=== PATIENT | female | born 1945 | race Caucasian/White ===

== ENCOUNTER 2017-12-16 21:32 | Emergency (ER) | payer MEDICARE, OTHER ==
[~2017-12-16] VITALS: Ht 157.5 cm; Wt 72.6 kg
[~2017-12-16 21:32] MED LIST: CIPRO500 MG PO; CITALOPRAM HBR40 MG PO; FLAGYL500 MG PO; MELOXICAM15 MG PO; NORCO 5-325 TA1 EACH PO
--- NOTE | 2017-12-18 15:52 | EKG ---
[facility] [address] [facility] [place] [address] Signed Normal sinus rhythm Possible Left atrial enlargement Borderline ECG No previous ECGs available Confirmed by AUTUMN PHILLIPS MD (255) on 12/18/2017 3:52:34 PM Electronically Signed By: AUTUMN PHILLIPS MD 12/18/17 1552 PATIENT NAME: KAEL PIMENTEL Electrocardiogram DATE OF : 43 PHYSICIAN: AUTUMN PHILLIPS MD REPORT #: [id number] REPORT IS CONFIDENTIAL AND NOT TO BE RELEASED WITHOUT AUTHORIZATION
== END 2017-12-17 01:24 | disposition home or self-care (01) ==
LOC: ED 21:32
DX: R07.9 Chest pain, unspecified (principal); F17.200 Nicotine dependence, unspecified, uncomplicated; Z90.49 Acquired absence of other specified parts of digestive tract; Z90.89 Acquired absence of other organs; Z79.899 Other long term (current) drug therapy
CPT/HCPCS: 71045; 80053; 84484; 85025; 93005; 93010; 96374; 96375; 99284; J2270; J2405

== ENCOUNTER 2018-01-06 20:00 | Emergency (ER) | payer MEDICARE, OTHER ==
[~2018-01-06] VITALS: Ht 157.5 cm; Wt 72.6 kg
--- NOTE | 2018-01-07 08:03 | EKG ---
[facility] [address] [facility] [place] [address] Signed Normal sinus rhythm with sinus arrhythmia ST elevation, consider inferior injury or acute infarct ACUTE [place] / STEMI Consider right ventricular involvement in acute inferior infarct Abnormal ECG When compared with ECG of 16-DEC-2017 21:37, ST elevation now present in Inferior leads Confirmed by AUTUMN PHILLIPS MD (255) on 01/07/2018 8:03:13 AM Electronically Signed By: AUTUMN PHILLIPS MD 01/07/18 0803 PATIENT NAME: KAEL PIMENTEL Electrocardiogram DATE OF : 43 PHYSICIAN: AUTUMN PHILLIPS MD REPORT #: [id number] REPORT IS CONFIDENTIAL AND NOT TO BE RELEASED WITHOUT AUTHORIZATION
== END 2018-01-06 21:00 | disposition short-term general hospital (02) ==
LOC: ED 20:00
DX: I21.3 ST elevation (STEMI) myocardial infarction of unspecified site (principal); F17.200 Nicotine dependence, unspecified, uncomplicated; Z79.899 Other long term (current) drug therapy
CPT/HCPCS: 71045; 80053; 84484; 85025; 93005; 93010; 96374; 96375; 99285; J1644; J2270; J2405

== ENCOUNTER 2018-08-12 15:35 | Emergency (ER) | payer MEDICARE, OTHER ==
[~2018-08-12] VITALS: Ht 157.5 cm; Wt 77.6 kg
--- NOTE | ~2018-08-12 | EKG ---
[facility] [address] [place], [place] [address] Draft EK completed, results pending confirmation PATIENT NAME: KAEL PIMENTEL Electrocardiogram DATE OF : 43 PHYSICIAN: PRELIMINARY REPORT #: [id number] REPORT IS CONFIDENTIAL AND NOT TO BE RELEASED WITHOUT AUTHORIZATION
--- OUTSIDE RECORDS SUMMARY | ~2018-08-12 | XMS | Clinical Summary ---
Demographics + + + | Address | [address] | | | [place] [address] | + + + | Home Phone | | + + + | Preferred Language | Unknown | + + + | Marital Status | Single | + + + | Nondenominational Affiliation | Unknown | + + + | Race | Unknown | + + + | Ethnic Group | Unknown | + + + Author + + + | Author | [facility] | | | and [place] | + + + | Organization | [facility] | | | and [place] | + + + | Address | Unknown | + + + | Phone | Unavailable | + + + Support + + +---------+ + | Name | Relationship | Address | Phone | + + +---------+ + | Norm Tatum | ECON | Unknown | | + + +---------+ + | Ana Montes | ECON | Unknown | | + + +---------+ + | BRITNEY BOND | ECON | Unknown | | + + +---------+ + Care Team Providers + +------+ + | Care Psychometrician Name | Role | Phone | + +------+ + | Lobo Guillaume MD | PP | | + +------+ + Allergies No Known Allergies Current Medications + + +-------+---------+------+------+-------+ | Prescription | Sig. | Disp. | Refills | Star | End | Statu | | | | | | t | Date | s | | | | | | Date | | | + + +-------+---------+------+------+-------+ | citalopram | Take 40 mg by mouth | | | 09/1 | | Activ | | (CELEXA) 40 mg | Daily. | | | 4/20 | | e | | tablet | | | | 12 | | | + + +-------+---------+------+------+-------+ | pravastatin | 2 tablets by mouth | | | 09/1 | | Activ | | (PRAVACHOL) 40 MG | at bedtime | | | 4/20 | | e | | tablet | | | | 12 | | | + + +-------+---------+------+------+-------+ | gemfibrozil | 2 tablets by mouth | | | 09/1 | | Activ | | (LOPID) 600 mg | daily | | | 4/20 | | e | | tablet | | | | 12 | | | + + +-------+---------+------+------+-------+ | aspirin (ASPIRIN | Take 81 mg by mouth | | | 07/25 | | Activ | | LOW DOSE) 81 MG | Daily. | | | 420 | | e | | tablet | | | | 12 | | | + + +-------+---------+------+------+-------+ | Vernon-3 Fatty | CPDR; 1 capsule by | | | 07/25 | | Activ | | Acids (OMEGA 3 PO) | mouth daily | | | 4/20 | | e | | | | | | 12 | | | + + +-------+---------+------+------+-------+ | ibuprofen (ADVIL, | Take 200 mg by mouth | | | 1 | | Activ | | MOTRIN) 200 mg | as needed. | | | 4/20 | | e | | tablet | | | | 12 | | | + + +-------+---------+------+------+-------+ | Fluticasone | 1 inhalation twice a | | | 08/0 | | Activ | | Propionate, Inhal, | day | | | /20 | | e | | (FLOVENT DISKUS) 100 | | | | 11 | | | | MCG/BLIST AEPB | | | | | | | + + +-------+---------+------+------+-------+ | atorvaSTATin | Take 80 mg by mouth | | | | | Activ | | (LIPITOR) 80 MG | nightly. | | | | | e | | tablet | | | | | | | + + +-------+---------+------+------+-------+ | clopidogrel | Take 75 mg by mouth | | | | | Activ | | (PLAVIX) 75 mg | Daily. | | | | | e | | tablet | | | | | | | + + +-------+---------+------+------+-------+ | loperamide (EQ | Take 2 mg by mouth | | | | | Activ | | ANTI-DIARRHEAL) 2 mg | Every other day. | | | | | e | | capsule | | | | | | | + + +-------+---------+------+------+-------+ | losartan (COZAAR) | Take 25 mg by mouth | | | | | Activ | | 25 mg tablet | Daily. | | | | | e | + + +-------+---------+------+------+-------+ | meloxicam (MOBIC) | Take 15 mg by mouth | | | | | Activ | | 15 mg tablet | Daily. | | | | | e | + + +-------+---------+------+------+-------+ | nitroglycerin | Place 0.4 mg under | | | | | Activ | | (NITROSTAT) 0.4 mg | the tongue every 5 | | | | | e | | SL tablet | minutes as needed | | | | | | | | for Chest pain. | | | | | | + + +-------+---------+------+------+-------+ | omeprazole | Take 20 mg by mouth | | | | | Activ | | (PRILOSEC) 20 mg | every morning | | | | | e | | capsule | (before breakfast). | | | | | | + + +-------+---------+------+------+-------+ | metoprolol | Take 25 mg by mouth | | | | | Activ | | tartrate (LOPRESSOR) | 2 times daily. | | | | | e | | 25 mg tablet | | | | | | | + + +-------+---------+------+------+-------+ Active Problems + + + | Problem | Noted Date | + + + | [place] (myocardial infarction) ([facility]) | 07/14/2018 | + + + | Claudication ([facility]) | 07/14/2018 | + + + | Hypertension | 07/14/2018 | + + + | Hyperlipemia | 07/14/2018 | + + + | Degenerative joint disease | 07/14/2018 | + + + | Chest discomfort | 07/14/2018 | + + + | GERD (gastroesophageal reflux disease) | 07/14/2018 | + + + | ANXIETY | | + + + | COPD | | + + + | DYSLIPIDEMIA | | + + + | OVERWEIGHT | | + + + + + | Overview: ICD-10 Record update | + + + +---+ | HEMOPTYSIS UNSPECIFIED | | + +---+ + + | Overview: ICD-10 Record update | + + + +---+ | ALZHEIMER'S DISEASE, FAMILY HX | | + +---+ | CORONARY ARTERY DISEASE, FAMILY HX | | + +---+ | DEPRESSION, MAJOR, RECURRENT | | + +---+ | Sleep disturbance | | + +---+ + + | Overview: PLACIDO [id number] Decision | + + + +---+ | TOBACCO ABUSE | | + +---+ | VITAMIN D DEFICIENCY | | + +---+ | POLYCYTHEMIA, SECONDARY | | + +---+ | OTHER HEMOPTYSIS | | + +---+ | Pulmonary emphysema (HCC) | | + +---+ + + | Overview: PLACIDO [id number] Decision | + + Encounters +--------+ + + + + | Date | Type | Specialty | Care Team | Description | +--------+ + + + + | 07/20/ | Ancillary | | Provider, | | | 2018 | Orders | | MD Sharri | | +--------+ + + + + | 07/17/ | Abstract | | Aris Galicia | | | 2017 | | | MD Pal FACS | | +--------+ + + + + | 07/15/ | Imaging | | Dianna, | | | 2017 | Exam | | MD Sharri | | +--------+ + + + + | 07/14/ | Abstract | | Aris Galicia | | | 2017 | | | MD Pal FACS | | +--------+ + + + + | 07/14/ | Abstract | | Aris Galicia | Claudication ([facility]); | | 2017 | | | MD Pal FACS | Chest discomfort | +--------+ + + + + | 07/10/ | Telephone | | Aris Galicia | Other (Requesting | | 2017 | | | MD Pal FACS | imaging) | +--------+ + + + + from Last 3 Months Social History + +-------+ +--------+------+ | Tobacco Use | Types | Packs/Day | Years | Date | | | | | Used | | + +-------+ +--------+------+ | Current Every Day | | 0.5 | | | | Smoker | | | | | + +-------+ +--------+------+ + + | Comments: x 58 years (2018) | + + + + +---------+ + | Alcohol Use | Drinks/We | oz/Week | Comments | | | ek | | | + + +---------+ + | No | | | | + + +---------+ + + + + | Sex Assigned at | Date Recorded | | | | + + + | Not on file | | + + + Last Filed Vital Signs + + + + | Vital Sign | Reading | Time Taken | + + + + | Blood Pressure | 136/80 | 06/24/2011 0000 PDT | + + + + | Pulse | - | - | + + + + | Temperature | - | - | + + + + | Respiratory Rate | - | - | + + + + | Oxygen Saturation | - | - | + + + + | Inhaled Oxygen | - | - | | Concentration | | | + + + + | Weight | 77.1 kg (170 lb) | 06/24/2011 0000 PDT | + + + + | Height | 158.8 cm (5' 2.5") | 06/24/2011 0000 PDT | + + + + | Body Mass Index | 30.6 | 06/24/2011 0000 PDT | + + + + Plan of Treatment +--------+---------+ + + + | Date | Type | Specialty | Care Team | Description | +--------+---------+ + + + | 08/17/ | Office | | Aris Galicia | | | 2018 | Visit | | MD Kae, [address] | | | | | | [address] | | | | | | [place] [address] | | | | | | [phone] | | | | | | | | +--------+---------+ + + + | 08/27/ | Office | | Shar Pettit | | | 2017 | Visit | | MD Joshua [address] | | | | | [address] | | | | | | [place] [address] | | | | | | [phone] | | | | | | | | +--------+---------+ + + + + + + + + | Health Maintenance | Due Date | Last Done | Comments | + + + + + | Vaccine: | | | | | Dtap/Tdap/Td (1 - | 3 | | | | Tdap) | | | | + + + + + | BREAST CANCER | | | | | SCREENING (MAMM Q2 | 4 | | | | YEARS 50-74) | | | | + + + + + | Colorectal Cancer | | | | | Screening | 4 | | | | (Colonoscopy) | | | | + + + + + | Vaccine: Zoster (1 | | | | | of 2) | 4 | | | + + + + + | Vaccine: | | | | | Pneumococcal 65+ | 9 | | | | Low/Medium Risk (1 | | | | | of 2 - PCV13) | | | | + + + + + | Vaccine: Influenza | | | | | (#1) | 8 | | | + + + + + Procedures + +--------+ + + + | Procedure Name | Priori | Date/Time | Associated Diagnosis | Comments | | | ty | | | | + +--------+ + + + | CT ANGIOGRAM ABDOMEN | Routin | 07/15/2018 | | Results for this | | AORTA BILAT FEMORAL | e | 1235 PDT | | procedure are in the | | RUNOFF W CONTRAST | | | | results section. | + +--------+ + + + from Last [address] Angio Abd Aorta Bilat Fem Run W Cont (07/15/2018 1235) + + + | Narrative | Performed At | + + + | External films for comparison only | [facility] | | | | | No results will be in the chart. | | + + + + +---------+ + + | Performing | Address | City/State/Zipcode | Phone Number | | Organization | | | | + +---------+ + + | [facility] | | | | + +---------+ + + from Last 3 Months Insurance + +--------+ +--------+ +---------+ | Payer | Benefi | Subscriber | Type | Phone | Address | | | t Plan | ID | | | | | | / | | | | | | | Group | | | | | + +--------+ +--------+ +---------+ | MEDICARE | MEDICA | [id number] | Medica | [phone]- | | | | RE | | re | [phone] | | | | PART A | | | | | | | AND B | | | | | + +--------+ +--------+ +---------+ | [place]ID [place] | MEDICA | [id number] | Medica | [phone] | | | | ID | | id | [phone] | | | | [place] | | | | | + +--------+ +--------+ +---------+ + +--------+ +--------+ + + | Guarantor Name | Accoun | Relation to | Date | Phone | Billing Address | | | t Type | Patient | of | | | | | | | | | | + +--------+ +--------+ + + | SHYANNE AMES | Person | Self [birth year] | Home: | [address] | | | al/Fam | | 1945 | [phone] | | | [place] | | | [phone] | [place] [address] | + +--------+ +--------+ + +
--- OUTSIDE RECORDS SUMMARY | ~2018-08-12 | XMS | Encounter Summary ---
Demographics + + + | Address | [address] | | | [place] [address] | + + + | Home Phone | | + + + | Preferred Language | Unknown | + + + | Marital Status | Single | + + + | Nondenominational Affiliation | Unknown | + + + | Race | Unknown | + + + | Ethnic Group | Unknown | + + + Author + + + | Author | [facility] | | | and [place] | + + + | Organization | [facility] | | | and [...] Team Providers + +------+ + | Care Geography Faculty Member Name | Role | Phone | + +------+ + | Lobo Guillaume MD | PCP | | + +------+ + Encounter Details +--------+ + + + + | Date | Type | Department | Care Team | Description | +--------+ + + + + | 07/14/ | Abstract | [facility] | Aris Galicia | Claudication (HCC); | | 2017 | | SURGERY [address] | MD Kae, [address] | Chest discomfort | | | | [place], [place] | [address] [facility] | | | | | [address] | [place] [address] | | | | | [phone] | [phone] | | | | | | | | +--------+ + + + + Social History + +-------+ +--------+------+ | Tobacco [...] on file | | + + + as of this encounter Plan of Treatment +--------+---------+ + + + | Date | Type | Specialty | Care Team | Description | +--------+---------+ + + + | 08/17/ | Office | General Surgery | Aris Galicia | | | 2017 | Visit | | MD Pal FACS [address] | | | | | | [address] | | | | | | [place] [address] | | | | | | [phone] | | | | | | | | +--------+---------+ + + + | 08/27/ | Office | Cardiology | Shar Pettit | | | 2017 | Visit | | MD Joshua [address] | | | | | | [address] [facility] | | | | | | [place] [address] | | | | | | [phone] | | | | | | | | +--------+---------+ + + + as of this encounter Visit Diagnoses + + | Diagnosis | + + | Claudication (HCC) | + + | Peripheral vascular disease, unspecified | + + | Chest discomfort | + + | Other chest pain | + +"
--- OUTSIDE RECORDS SUMMARY | ~2018-08-12 | XMS | Clinical Summary ---
Demographics + + + | Address | [address] | | | [place] [address] | + + + | Home Phone | | + + + | Preferred Language | Unknown | + + + | Marital Status | Single | + + + | Sikhism Affiliation | Unknown | + + + | Race | Unknown | + + + | Ethnic Group | Unknown | + + + Author + + + | Author | [facility] | | | and [place] | + + + | Organization | [facility] | | | and [...] Team Providers + +------+ + | Care Investment Banker Name | Role | Phone | + [...] | | | + + +-------+---------+------+------+-------+ | [place]-3 Fatty | CPDR; 1 capsule by | [...] Noted Date | + + + | [place] (myocardial infarction) ([facility]) | 07/14/2018 | + + + | Claudication ([facility]) | 07/14/2018 | + + + | [...] + +---+ + + | Overview: PLACIDO [id number] Decision | + + + +---+ | TOBACCO ABUSE | | + +---+ | VITAMIN D DEFICIENCY | | + +---+ | POLYCYTHEMIA, SECONDARY | | + +---+ | OTHER HEMOPTYSIS | | + +---+ | Pulmonary emphysema (HCC) | | + +---+ + + | Overview: PLACIDO [id number] Decision | + + Encounters +--------+ + [...] Abstract | | Aris Galicia | Claudication ([facility]); | | 2017 | | | MD [...] | | | | | [place] [address] | | | | | | [phone] | | | | | | | | +--------+---------+ + + + | 08/27/ | Office | | Shar Pettit | | | 2017 | Visit | | MD Joshua [address] | | | | | | [address] | | | | | | [place] [address] | | | | | | [phone] | | | | | | | [...] +--------+ +---------+ | MEDICARE | MEDICA | [id number] | Medica | [phone]- | | | | RE | | re | [phone] | | | | PART A | | | | | | | AND B | | | | | + +--------+ +--------+ +---------+ | MEDICAID [place] | MEDICA | [id number] | Medica | [phone] | | | | ID | | [...] | | | [address] | [place] [address] | + +--------+ +--------+ + +
--- OUTSIDE RECORDS SUMMARY | ~2018-08-12 | XMS | Clinical Summary ---
Demographics + + + | Address | [address] | | | [place] [address] | + + + | Home Phone | | + + + | Preferred Language | Unknown | + + + | Marital Status | | + + + | Jew Affiliation | Unknown | + + + | Race | Unknown | + + + | Ethnic Group | Unknown | + + + Author + + + | Author | [facility] | + + + | Organization | [facility] | + + + | Address | Unknown | + + + | Phone | Unavailable | + + + Support + + +---------+ + | Name | Relationship | Address | Phone | + + +---------+ + | Ana Montes | ECON | Unknown | | + + +---------+ + Care Team Providers + +------+ + | Care Open Die Inspector Name | Role | Phone | + +------+ + PP | Unavailable | + +------+ + Allergies No Known Allergies Current Medications + + +--------+---------+------+------+-------+ | Prescription | Sig. | Disp. | Refills | Star | End | Statu | | | | | | t | Date | s | | | | | | Date | | | + + +--------+---------+------+------+-------+ | aspirin 81 MG EC | Take 1 tablet by | 30 | 11 | 12/25 | 12/25 | Activ | | tablet | mouth daily with | tablet | | 05/13 | 05/13 | e | | | breakfast. | | | 18 | 19 | | + + +--------+---------+------+------+-------+ | atorvastatin | Take 1 tablet by | 90 | 3 | 12/25 | 12/25 | Activ | | (LIPITOR) 80 MG | mouth daily. | tablet | | 6/20 | 6/20 | e | | tablet | | | | 18 | 19 | | + + +--------+---------+------+------+-------+ | clopidogrel | Take 1 tablet by | 90 | 3 | 12/25 | 12/25 | Activ | | (PLAVIX) 75 MG | mouth daily. | tablet | | 6/20 | 05/13 | e | | tablet | | | | 18 | 19 | | + + +--------+---------+------+------+-------+ | losartan (COZAAR) | Take 1 tablet by | 90 | 3 | 12/25 | 12/25 | Activ | | 25 MG tablet | mouth daily. | tablet | | 6 | 05/13 | e | | | | | | 18 | 19 | | + + +--------+---------+------+------+-------+ | metoprolol | Take 1 tablet by | 180 | 3 | 02 | 12/25 | Activ | | (LOPRESSOR) 25 MG | mouth 2 (two) times | tablet | | 04/12 | 04/12 | e | | tablet | daily. | | | 18 | 19 | | + + +--------+---------+------+------+-------+ | nitroGLYCERIN | Place 1 tablet under | 25 | 1 | 12/25 | 12/25 | Activ | | (NITROSTAT) 0.4 MG | the tongue every 5 | tablet | | / | / | e | | SL tablet | (five) minutes as | | | 18 | 19 | | | | needed for Chest | | | | | | | | pain. | | | | | | + + +--------+---------+------+------+-------+ Active Problems + + + | Problem | Noted Date | + + + | Precordial pain | 01/06/2018 | + + + | Acute PA, inferior wall (HCC) | 01/06/2018 | + + + | Dyslipidemia | 01/06/2018 | + + + | Osteoarthritis of knee | 01/06/2018 | + + + | Essential hypertension | 01/06/2018 | + + + | Tobacco dependence | 01/06/2018 | + + + Social History + +-------+ +--------+------+ | Tobacco Use | Types | Packs/Day | Years | Date | | | | | Used | | + +-------+ +--------+------+ | Current Every Day | | 1 | 52 | | | Smoker | | | | | + +-------+ +--------+------+ + +---+---+---+ | Smokeless Tobacco: | | | | | Never Used | | | | + +---+---+---+ + + | Tobacco Cessation: Ready to Quit: No; Counseling Given: Yes | + + + + + | Sex Assigned at | Date Recorded | | | | + + + | Not on file | | + + + Last Filed Vital Signs + + + + | Vital Sign | Reading | Time Taken | + + + + | Blood Pressure | 136/64 | 01/08/2018 11:18 AM PST | + + + + | Pulse | 55 | 01/08/2018 11:18 AM PST | + + + + | Temperature | 36.9 C (98.5 F) | 01/08/2018 11:18 AM PST | + + + + | Respiratory Rate | 20 | 01/08/2018 11:18 AM PST | + + + + | Oxygen Saturation | 95% | 01/08/2018 11:18 AM PST | + + + + | Inhaled Oxygen | - | - | | Concentration | | | + + + + | Weight | 79.4 kg (175 lb) | 01/08/2018 3:15 AM PST | + + + + | Height | 160 cm (5' 3") | 01/06/2018 11:23 PM PST | + + + + | Body Mass Index | 31 | 01/08/2018 3:15 AM PST | + + + + Plan of Treatment Not on file Implants + +-------+--------+ +--------+--------+--------+ | Implanted | Type | Area | Manufacture | Device | Expira | Model | | | | | r | | tion | / | | | | | | Identi | Date | Serial | | | | | | fier | | / Lot | + +-------+--------+ +--------+--------+--------+ | Synergy Jacinto 2.5 X | Stent | Hood | [place] | | 10/27/ | [id number] | | 16-01/06/2018Implanted: Qty: 1 | | ry | SCIENTIFIC | | 2017 | [id number] | | on 01/06/2018 by Kareen, | | | | | | 50 / | | MD Josh | | | | | | /[id number] | | | | | | | | 554 | + +-------+--------+ +--------+--------+--------+ | Synergy Jacinto 3.5 X | Stent | Hood | [place] | | 10/27/ | [id number] | | 20-01/06/2018Implanted: Qty: 1 | | ry | SCIENTIFIC | | 2017 | [id number] | | on 01/06/2018 by Kareen, | | | | | | 50 / | | MD Josh | | | | | | / | | | | | | | | 196 | + +-------+--------+ +--------+--------+--------+ | Synergy Jacinto 2.75 X | Stent | Hood | [place] | | 10/13/ | [id number] | | 32-01/06/2018Implanted: Qty: 1 | | ry | SCIENTIFIC | | 2017 | [id number] | | on 01/06/2018 by Kareen, | | | | | | 70 / | | MD Josh | | | | | | / | | | | | | | | 584 | + +-------+--------+ +--------+--------+--------+ Results Not on filefrom Last 3 Months Insurance + +--------+ +------+-------+ + | Payer | Benefi | Subscriber | Type | Phone | Address | | | t Plan | ID | | | | | | / | | | | | | | Group | | | | | + +--------+ +------+-------+ + | MEDICARE | MEDICA | [id number] | | | [address] | | | RE | | | | [place] [phone] | | | IP-OP | | | | | + +--------+ +------+-------+ + | MEDICAID | MEDICA | [id number] | | | [address] | | | ID | | | | [place], [place] | | | [place] | | | | [phone] | + +--------+ +------+-------+ + | MEDICAID | MEDICA | [id number] | | | [address] | | | ID | | | | [place], [place] | | | [place] | | | | [phone] | + +--------+ +------+-------+ + + +--------+ +--------+ + + | Guarantor Name | Accoun | Relation to | Date | Phone | Billing Address | | | t Type | Patient | of | | | | | | | | | | + +--------+ +--------+ + + | SHYANNE AMES | Person | Self [birth year] | Home: | [address] | | | al/Fam | | 1945 | [phone] | | | [place] | | | [address] | [place] | | | | | | | [phone] | + +--------+ +--------+ + +
--- OUTSIDE RECORDS SUMMARY | ~2018-08-12 | XMS | Encounter Summary ---
Demographics + + + | Address | [address] | | | [place] [address] | + + + | Home Phone | | + + + | Preferred Language | Unknown | + + + | Marital Status | Single | + + + | Christian Affiliation | Unknown | + + + | Race | Unknown | + + + | Ethnic Group | Unknown | + + + Author + + + | Author | [facility] | | | and [place] | + + + | Organization | [facility] | | | [...] Team Providers + +------+ + | Care Digital Production Manager Name | Role | Phone | + +------+ + | Lobo Guillaume MD | PCP | | + +------+ + Encounter Details +--------+ + + + + | Date | Type | Department | Care Team | Description | +--------+ + + + + | 07/20/ | Ancillary | [facility] | Provider, | | | 2018 | Orders | [facility] | MD Sharri [address] | | | | | IMAGING | [address] | | | | | [phone] | [place] [address] | | +--------+ + + + + [...] | | | | | | [address] [place] | | | | | | [place] [address] | | | | | | [phone] | | | | | | | | +--------+---------+ + + + | 08/27/ | Office | Cardiology | Shar Pettit | | | 2017 | Visit | | MD Joshua [address] | | | | | | [address] [place] | | | | | | [place] [address] | | | | | | [phone] | | | | | | | | +--------+---------+ + + + as of this encounter Results CT Angio Abd Aorta Bilat Fem [...] | | | + +---------+ + + CT Angio Abd Aorta Bilat Fem Run W Cont (06/07/2016 0855) + + + | Narrative | Performed [...] | | | + +---------+ + + in this encounter Visit Diagnoses Not on filein this encounter"
--- OUTSIDE RECORDS SUMMARY | ~2018-08-12 | XMS | Encounter Summary ---
Demographics + + + | Address | [address] | | | [place] [address] | + + + | Home Phone | | + + + | Preferred Language | Unknown | + + + | Marital Status | Single | + + + | Nondenominational Affiliation | Unknown | + + + | Race | Unknown | + + + | Ethnic Group | Unknown | + + + Author + + + | Author | [facility] | | | and [place] | + + + | Organization | [facility] | | [...] Team Providers + +------+ + | Care Stone Banker Name | Role | Phone | + +------+ + | Lobo Guillaume MD | PCP | | + +------+ + Encounter Details +--------+ + + + + | Date | Type | Department | Care Team | Description | +--------+ + + + + | 07/15/ | Imaging | [facility] | Provider, | | | 2018 | Exam | [facility] | MD Sharri [address] | | | | | IMAGING | Anthony Yi | | | | | [phone] | [place] [address] | | +--------+ + + + + [...] | | | | | [address] [place] | | | | | | [place] [address] | | | | | | [phone] | | | | | | | | +--------+---------+ + + + | 08/27/ | Office | Cardiology | Shar Pettit | | | 2017 | Visit | | MD Joshua [address] | | | | | | [address] [place] | | | | | | [place] [address] | | | | | | [phone] | | | | | | | | +--------+---------+ + + + as of this encounter Procedures + +--------+ + + + | [...] section. | + +--------+ + + + in this encounter Results CT Angio Abd Aorta [...]
--- OUTSIDE RECORDS SUMMARY | ~2018-08-12 | XMS | Encounter Summary ---
Demographics + + + | Address | [address] | | | [place] [address] | + + + | Home Phone | | + + + | Preferred Language | Unknown | + + + | Marital Status | Single | + + + | Scientology Affiliation | Unknown | + + + | Race | Unknown | + + + | Ethnic Group | Unknown | + + + Author + + + | Author | [facility] | | | and [place] | + + + | Organization | [facility] | | | [...] Team Providers + +------+ + | Care Steamfitter Supervisor Name | Role | Phone | + +------+ + | Lobo Guillaume MD | PCP | | + +------+ + Encounter Details +--------+ + + + + | Date | Type | Department | Care Team | Description | +--------+ + + + + | 07/14/ | Abstract | [facility] | Aris Galicia | | | 2018 | | SURGERY [address] | MD Kae, FACS [address] | | | | | [address] [place], [place] | [address] [facility] | | | | | [address] | [place] [address] | | | | | [phone] | [phone] | | | | | | | [...] [place] | | | | | | [place] [address] | | | | | | [phone] | | | | | | | | +--------+---------+ + + + | 08/27/ | Office | Cardiology | Shar Pettit | | | 2017 | Visit | | MD Joshua [address] | | | | | | [address] [place] | | | | | | [place] [address] | | | | | | [phone] | | | | | | | | +--------+---------+ + + + as of this encounter Procedures + +--------+ + + + | Procedure Name | Priori | Date/Time | Associated Diagnosis | Comments | | | ty | | | | + +--------+ + + + | EXTERNAL LAB: BUN | Routin | 01/03/2018 | | Results for this | | | e | 0000 PST | | procedure are in the | | | | | | results section. | + +--------+ + + + | EXTERNAL LAB: | Routin | 01/03/2018 | | Results for this | | TROPONIN T | e | 0000 PST | | procedure are in the | | | | | | results section. | + +--------+ + + + | EXTERNAL LAB: ALT | Routin | 01/03/2018 | | Results for this | | | e | 0000 PST | | procedure are in the | | | | | | results section. | + +--------+ + + + | EXTERNAL LAB: AST | Routin | 01/03/2018 | | Results for this | | | e | 0000 PST | | procedure are in the | | | | | | results section. | + +--------+ + + + | EXTERNAL LAB: | Routin | 01/03/2018 | | Results for this | | ALKALINE PHOSPHATASE | e | 0000 PST | | procedure are in the | | | | | | results section. | + +--------+ + + + | EXTERNAL LAB: | Routin | 01/03/2018 | | Results for this | | BILIRUBIN, TOTAL | e | 0000 PST | | procedure are in the | | | | | | results section. | + +--------+ + + + | EXTERNAL LAB: | Routin | 01/03/2018 | | Results for this | | ALBUMIN | e | 0000 PST | | procedure are in the | | | | | | results section. | + +--------+ + + + | EXTERNAL LAB: | Routin | 01/03/2018 | | Results for this | | PROTEIN, TOTAL | e | 0000 PST | | procedure are in the | | | | | | results section. | + +--------+ + + + | EXTERNAL LAB: | Routin | 01/03/2018 | | Results for this | | CALCIUM | e | 0000 PST | | procedure are in the | | | | | | results section. | + +--------+ + + + | EXTERNAL LAB: CARBON | Routin | 01/03/2018 | | Results for this | | DIOXIDE | e | 0000 PST | | procedure are in the | | | | | | results section. | + +--------+ + + + | EXTERNAL LAB: | Routin | 01/03/2018 | | Results for this | | CHLORIDE | e | 0000 PST | | procedure are in the | | | | | | results section. | + +--------+ + + + | EXTERNAL LAB: | Routin | 01/03/2018 | | Results for this | | POTASSIUM | e | 0000 PST | | procedure are in the | | | | | | results section. | + +--------+ + + + | EXTERNAL LAB: SODIUM | Routin | 01/03/2018 | | Results for this | | | e | 0000 PST | | procedure are in the | | | | | | results section. | + +--------+ + + + | EXTERNAL LAB: CBC | Routin | 01/03/2018 | | Results for this | | | e | 0000 PST | | procedure are in the | | | | | | results section. | + +--------+ + + + | EXTERNAL LAB: EGFR | Routin | 01/03/2018 | | Results for this | | | e | 0000 PST | | procedure are in the | | | | | | results section. | + +--------+ + + + | EXTERNAL LAB: | Routin | 01/03/2018 | | Results for this | | CREATININE | e | 0000 PST | | procedure are in the | | | | | | results section. | + +--------+ + + + | CBC WITH | Routin | 01/03/2018 | | Results for this | | DIFFERENTIAL | e | 0000 PST | | procedure are in the | | | | | | results section. | + +--------+ + + + | COMPREHENSIVE | Routin | 01/03/2018 | | Results for this | | METABOLIC PANEL | e | 0000 PST | | procedure are in the | | | | | | results section. | + +--------+ + + + in this encounter Results CBC with Differential (01/03/2018) + +-------+ + + | Component | Value | Ref Range | Performed At | + +-------+ + + | MCH | 30.0 | 26.0 - 33.0 pg | | + +-------+ + + | MCHC | 34.0 | 30.0 - 36.0 % | | + +-------+ + + | BASOPHILS % | 0.0 | 0.0 - 2.0 % | | + +-------+ + + + + | Specimen | + + | Blood | + + Comprehensive Metabolic Panel (01/03/2018) + +-------+ + + | Component | Value | Ref Range | Performed At | + +-------+ + + | Albumin/Globulin | 1.2 | 1.1 - 2.4 Ratio | | | Ratio | | | | + +-------+ + + | Bun/Creatinine | 23.3 | 6 - 23.6 Ratio | | + +-------+ + + | ANION GAP | 14 | 7 - 21 mmol/L | | + +-------+ + + + + | Specimen | + + | Blood | + + External Lab: BUN (01/03/2018) + +--------+ + + | Component | Value | Ref Range | Performed At | + +--------+ + + | BUN, External | 24 (A) | 6 - 23 | EXTERNAL LAB | + +--------+ + + + +---------+ + + | Performing | Address | City/State/Zipcode | Phone Number | | Organization | | | | + +---------+ + + | EXTERNAL LAB | | | | + +---------+ + + External Lab: Troponin T (01/03/2018) + +--------+ + + | Component | Value | Ref Range | Performed At | + +--------+ + + | Troponin T, External | <1.010 | 0 - 0.01 | EXTERNAL LAB | + +--------+ + + + +---------+ + + | Performing | Address | City/State/Zipcode | Phone Number | | Organization | | | | + +---------+ + + | EXTERNAL LAB | | | | + +---------+ + + External Lab: ALT (01/03/2018) + +-------+ + + | Component | Value | Ref Range | Performed At | + +-------+ + + | ALT, External | 36 | 7 - 52 | EXTERNAL LAB | + +-------+ + + + +---------+ + + | Performing | Address | City/State/Zipcode | Phone Number | | Organization | | | | + +---------+ + + | EXTERNAL LAB | | | | + +---------+ + + External Lab: AST (01/03/2018) + +-------+ + + | Component | Value | Ref Range | Performed At | + +-------+ + + | AST, External | 30 | 13 - 39 | EXTERNAL LAB | + +-------+ + + + +---------+ + + | Performing | Address | City/State/Zipcode | Phone Number | | Organization | | | | + +---------+ + + | EXTERNAL LAB | | | | + +---------+ + + External Lab: Alkaline Phosphatase (01/03/2018) + +-------+ + + | Component | Value | Ref Range | Performed At | + +-------+ + + | ALP, External | 86 | 31 - 130 | EXTERNAL LAB | + +-------+ + + + +---------+ + + | Performing | Address | City/State/Zipcode | Phone Number | | Organization | | | | + +---------+ + + | EXTERNAL LAB | | | | + +---------+ + + External Lab: Bilirubin, Total (01/03/2018) + +-------+ + + | Component | Value | Ref Range | Performed At | + +-------+ + + | Bilirubin, Total, | 0.4 | 0 - 1.2 | EXTERNAL LAB | | External | | | | + +-------+ + + + +---------+ + + | Performing | Address | City/State/Zipcode | Phone Number | | Organization | | | | + +---------+ + + | EXTERNAL LAB | | | | + +---------+ + + External Lab: Albumin (01/03/2018) + +-------+ + + | Component | Value | Ref Range | Performed At | + +-------+ + + | Albumin, External | 4.3 | 3.5 - 5 | EXTERNAL LAB | + +-------+ + + + +---------+ + + | Performing | Address | City/State/Zipcode | Phone Number | | Organization | | | | + +---------+ + + | EXTERNAL LAB | | | | + +---------+ + + External Lab: Protein, Total (01/03/2018) + +-------+ + + | Component | Value | Ref Range | Performed At | + +-------+ + + | Protein, Total, | 7.8 | 6 - 8 | EXTERNAL LAB | | External | | | | + +-------+ + + + +---------+ + + | Performing | Address | City/State/Zipcode | Phone Number | | Organization | | | | + +---------+ + + | EXTERNAL LAB | | | | + +---------+ + + External Lab: Calcium (01/03/2018) + +-------+ + + | Component | Value | Ref Range | Performed At | + +-------+ + + | Calcium, External | 10 | 8.4 - 10.2 | EXTERNAL LAB | + +-------+ + + + +---------+ + + | Performing | Address | City/State/Zipcode | Phone Number | | Organization | | | | + +---------+ + + | EXTERNAL LAB | | | | + +---------+ + + External Lab: Carbon Dioxide (01/03/2018) + +-------+ + + | Component | Value | Ref Range | Performed At | + +-------+ + + | Carbon Dioxide, | 24 | 19 - 31 | EXTERNAL LAB | | External | | | | + +-------+ + + + +---------+ + + | Performing | Address | City/State/Zipcode | Phone Number | | Organization | | | | + +---------+ + + | EXTERNAL LAB | | | | + +---------+ + + External Lab: Chloride (01/03/2018) + +-------+ + + | Component | Value | Ref Range | Performed At | + +-------+ + + | Chloride, External | 106 | 95 - 112 | EXTERNAL LAB | + +-------+ + + + +---------+ + + | Performing | Address | City/State/Zipcode | Phone Number | | Organization | | | | + +---------+ + + | EXTERNAL LAB | | | | + +---------+ + + External Lab: Potassium (01/03/2018) + +-------+ + + | Component | Value | Ref Range | Performed At | + +-------+ + + | Potassium, External | 4.1 | 3.6 - 5.1 | EXTERNAL LAB | + +-------+ + + + +---------+ + + | Performing | Address | City/State/Zipcode | Phone Number | | Organization | | | | + +---------+ + + | EXTERNAL LAB | | | | + +---------+ + + External Lab: Sodium (01/03/2018) + +-------+ + + | Component | Value | Ref Range | Performed At | + +-------+ + + | Sodium, External | 140 | 132 - 143 | EXTERNAL LAB | + +-------+ + + + +---------+ + + | Performing | Address | City/State/Zipcode | Phone Number | | Organization | | | | + +---------+ + + | EXTERNAL LAB | | | | + +---------+ + + External Lab: CBC (01/03/2018) + + + + + | Component | Value | Ref Range | Performed At | + + + + + | WBC, External | 15.7 (A) | 4.5 - 11 | EXTERNAL LAB | + + + + + | HGB, External | 17.5 (A) | 12 - 16 | EXTERNAL LAB | + + + + + | HCT, External | 51.9 (A) | 35 - 45 | EXTERNAL LAB | + + + + + | PLT, External | 224 | 140 - 440 | EXTERNAL LAB | + + + + + | Neutrophils %, | 77.5 | 39 - 80 | EXTERNAL LAB | | External | | | | + + + + + | Lymphocytes %, | 17.2 | | EXTERNAL LAB | | External | | | | + + + + + | Monocytes %, | 4.7 | 0 - 12 | EXTERNAL LAB | | External | | | | + + + + + | Eosinophils %, | 0.6 | 0 - 6 | EXTERNAL LAB | | External | | | | + + + + + | RBC, External | 5.88 (A) | 3.8 - 5.1 | EXTERNAL LAB | + + + + + | MCV, External | 89 | 81 - 99 | EXTERNAL LAB | + + + + + | RDW, External | 13.4 | 10.5 - 15 | EXTERNAL LAB | + + + + + + +---------+ + + | Performing | Address | City/State/Zipcode | Phone Number | | Organization | | | | + +---------+ + + | EXTERNAL LAB | | | | + +---------+ + + External Lab: eGFR (01/03/2018) + +--------+ + + | Component | Value | Ref Range | Performed At | + +--------+ + + | eGFR, External | 53 (A) | 60 - 99,999 | EXTERNAL LAB | + +--------+ + + + + | Specimen | + + | Blood | + + + +---------+ + + | Performing | Address | City/State/Zipcode | Phone Number | | Organization | | | | + +---------+ + + | EXTERNAL LAB | | | | + +---------+ + + External Lab: Creatinine (01/03/2018) + +-------+ + + | Component | Value | Ref Range | Performed At | + +-------+ + + | Creatinine, External | 1.03 | 0.7 - 1.18 | EXTERNAL LAB | + +-------+ + + + + | Specimen | + + | Blood | + + + +---------+ + + | Performing | Address | City/State/Zipcode | Phone Number | | Organization | | | | + +---------+ + + | EXTERNAL LAB | | | | + +---------+ + + in this encounter Visit Diagnoses Not on filein this encounter"
--- OUTSIDE RECORDS SUMMARY | ~2018-08-12 | XMS | Encounter Summary ---
Demographics + + + | Address | [address] | | | [place] [address] | + + + | Home Phone | | + + + | Preferred Language | Unknown | + + + | Marital Status | Single | + + + | Pentecostalism Affiliation | Unknown | + + + | Race | Unknown | + + + | Ethnic Group | Unknown | + + + Author + + + | Author | [facility] | | | and [place] | + + + | Organization | [facility] | | | [...] Team Providers + +------+ + | Care Rapid Extractor Operator Name | Role | Phone | + [...] Anthony LUO | | | | | [phone] | [place] [address] | | +--------+ + + + + [...] | | | | | | [place] [address] | | | | | | [phone] | | | | | | | | +--------+---------+ + + + | 08/27/ | Office | Cardiology | Shar Pettit | | | 2017 | Visit | | MD Joshua [address] | | | | | [address] [place] | | | | | | [place] [address] | | | | | | [phone] | | | | | | | [...]
--- OUTSIDE RECORDS SUMMARY | ~2018-08-12 | XMS | Clinical Summary ---
Demographics + + + | Address | [address] | | | [place] [address] | + + + | Home Phone | | + + + | Preferred Language | Unknown | + + + | Marital Status | | + + + | Mosque Affiliation | Unknown | + + + | Race | Unknown | + + + | Ethnic Group | Unknown | + + + Author + + + | Author | [facility] | + + + | Organization | [facility] | + + + | Address | Unknown | + + + | Phone | Unavailable | + + + Support + + +---------+ + | Name | Relationship | Address | Phone | + + +---------+ + | Ana Montes | ECON | Unknown | | + + +---------+ + Care Team Providers + +------+ + | Care Tow Truck Operator Name | Role | Phone | [...] 01/06/2018 | + + + | Acute ID, inferior wall (HCC) | 01/06/2018 | + [...] Hood | [place] | | 10/27/ | [id number] | | 16-01/06/2018Implanted: Qty: 1 | | ry | SCIENTIFIC | | 2017 | [id number] | | on 01/06/2018 by Kareen, | | | | | | 50 / | | MD Josh | | | | | | /[id number] | | | | | | | | 554 | + +-------+--------+ +--------+--------+--------+ | Synergy Jacinto 3.5 X | Stent | Hood | [place] | | 10/27/ | [id number] | | 20-01/06/2018Implanted: Qty: 1 | | ry | SCIENTIFIC | | 2017 | [id number] | | on 01/06/2018 by Kareen, | | | | | | 50 / | | MD Josh | | | | | | / | | | | | | | | 196 | + +-------+--------+ +--------+--------+--------+ | Synergy Jacinto 2.75 X | Stent | Hood | [place] | | 10/13/ | [id number] | | 32-01/06/2018Implanted: Qty: 1 | | ry | SCIENTIFIC | | 2017 | [id number] | | on 01/06/2018 by Kareen, | [...] +------+-------+ + | MEDICARE | MEDICA | [id number] | | | [address] | | | RE | | | | [place] [address] | | | IP-OP | | | | | + +--------+ +------+-------+ + | MEDICAID | MEDICA | [id number] | | | [address] | | | ID | | | | [place], [place] | | | [place] | | | | [address] | + +--------+ +------+-------+ + | MEDICAID | MEDICA | [id number] | | | [address] | | | ID | | | | [place], [place] | | | [place] | | | | [address] | + +--------+ +------+-------+ + + +--------+ [...] | | | | | | | [address] | + +--------+ +--------+ + +
--- OUTSIDE RECORDS SUMMARY | ~2018-08-12 | XMS | Encounter Summary ---
Demographics + + + | Address | [address] | | | [place] [address] | + + + | Home Phone | | + + + | Preferred Language | Unknown | + + + | Marital Status | Single | + + + | Hinduism Affiliation | Unknown | + + + | Race | Unknown | + + + | Ethnic Group | Unknown | + + + Author + + + | Author | [facility] | | | and [place] | + + + | Organization | [facility] | | | and [...] Team Providers + +------+ + | Care Safety Advisor Name | Role | Phone | + +------+ + | Lobo Guillaume MD | PCP | | + +------+ + Encounter Details +--------+ + + + + | Date | Type | Department | Care Team | Description | +--------+ + + + + | 07/17/ | Abstract | [facility] | Aris Galicia | | | 2018 | | SURGERY [address] | MD aKe, FACS [address] | | | | | [address] [place], [place] | [address] [facility] | | | | | [address] | [place] [address] | | | | | [phone] | [phone] | | | | | | | [...] + + + as of this encounter Progress Notes Lydia Antonio, Planning Manager - 07/17/2018 0853 PDTCT Angiogram of the abdomen and pelv is, with runoff to the feet on 07/15/18 at [facility]. Impression: Severe atherosclerotic disease, with a very irregular lumen in the distal thoracic and abdo мария aorta, due to calcified and noncalcified and noncalfified plaque. There has been sligh t enlargement of the distal aortic aneurysm, with moderate increase of noncalcified plaque. Significant irregularity and liminal diameter reduction involves the bilateral vibha arteries . The vessels in the thighs shows significant narrowing and focal areas of calcified plaque, but there is three vessels runoff to the ankles bilaterally. Ella Valenzuela MD CTA Aorta - Ilio - Fem Run NATHANIEL + REBECCA Impression: Aorta: 1. Severe atherosclerosis of the thoracic and abdominal aorta. Bulky calcific plaque in the descending thoracic aorta results on tandem 50% stenoses. There are several short segment i ntimal flaps in the descending thoracic and infrarenal abdominal aorta. 2. 3.3 x 3.1 cm infrarenal abdominal aortic aneurysm. 3. Grossly patent aortic arch vessels, celiac artery, superior mesenteric artery, and left renal artery. Mild stenosis ostial segment right aj artery. 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 Right lower extremity CT angiogram: 4. 60% stenosis right common iliac artery proximal segment. 5. Multifocal moderate and high grade stenoses in the right superficial femoral artery. Paul ssly patent popliteal artery. 6. Tandem 30-50% and 50-70% stenosis in the proximal right anterior tibial artery, which no t significant stenosis in the right tibio-peroneal truck artery. Grossly patent posterior ti bial and peroneal arteries. Patent dorsalis pedis and plantar arteries. Left lower extremity CT angiogram: 7. Multifocal tandem mild stenoses in the left common and external iliac arteries without h emodynamilcally significant stenosis. 8. Tandem moderate stenosis in the proximal and mid left superficial femoral artery and mul tifocal high grade stenosis in the distal left superficial femoral artery. 9. Left anterior tibial artery occlusion. Grossly patent posterior tibial and peroneal maría elena vadim. Proximal dorsalis pedis. Patent plantar arteries. Chest, abdomen.pelvis, lower extremities: 10. Multiple scattered pulmonary nodules are stable since 2011 and require no follow up kimberlee luation. No new poilmnary nodules. 11. Mild thoracic and advanced lumbar lordosis without high grade spinal stenosis. No acute osseous abnormalities. Feroz Huizar in this encounter Plan of Treatment +--------+---------+ + + + | Date | Type | Specialty | Care Team | Description | +--------+---------+ + + + | 08/17/ | Office | General Surgery | Aris Galicia | | | 2017 | Visit | | MD Pal FACS [address] | | | | | | [address] | | | | | | [place] [address] | | | | | | [phone] | | | | | | | | +--------+---------+ + + + | 08/27/ | Office | Cardiology | Shar Pettit | | | 2017 | Visit | | MD Joshua [address] | | | | | | [address] | | | | | | [place] [address] | | | | | | [phone] | | | | | | | | +--------+---------+ + + + as of this encounter Visit Diagnoses Not on filein this encounter"
--- OUTSIDE RECORDS SUMMARY | ~2018-08-12 | XMS | Encounter Summary ---
Demographics + + + | Address | [address] | | | [place] [address] | + + + | Home Phone | | + + + | Preferred Language | Unknown | + + + | Marital Status | Single | + + + | Anabaptist Affiliation | Unknown | + + + | Race | Unknown | + + + | Ethnic Group | Unknown | + + + Author + + + | Author | [facility] | | | and [place] | + + + | Organization | [facility] | | [...] Team Providers + +------+ + | Care Bench Repair Technician Name | Role | Phone | + +------+ + | Lobo Guillaume MD | PCP | | + +------+ + Encounter Details +--------+ + + + + | Date | Type | Department | Care Team | Description | +--------+ + + + + | 07/14/ | Abstract | [facility] | Aris Galicia | | | 2018 | | SURGERY [address] | MD Kae, FACS [address] | | | | | [address] [place], [place] | [address] [facility] | | | | | [address] | [place] [address] | | | | | [phone] | [phone] | | | | | | | [...] | | | | | | [place] [address] | | | | | | [phone] | | | | | | | | +--------+---------+ + + + | 08/27/ | Office | Cardiology | Shar Pettit | | | 2017 | Visit | | MD Joshua [address] | | | | | | [address] [place] | | | | | | [place] [address] | | | | | | [phone] | | | | | | | [...]
--- OUTSIDE RECORDS SUMMARY | ~2018-08-12 | XMS | Encounter Summary ---
Demographics + + + | Address | [address] | | | [place] [address] | + + + | Home Phone | | + + + | Preferred Language | Unknown | + + + | Marital Status | Single | + + + | Confucianist Affiliation | Unknown | + + + | Race | Unknown | + + + | Ethnic Group | Unknown | + + + Author + + + | Author | [facility] | | | and [place] | + + + | Organization | [facility] | | | [...] Team Providers + +------+ + | Care Passenger Attendant Name | Role | Phone | + +------+ + | Lobo Guillaume MD | PCP | | + +------+ + Encounter Details +--------+ + + + + | Date | Type | Department | Care Team | Description | +--------+ + + + + | 07/17/ | Abstract | [facility] | Aris Galicia | | | 2018 | | SURGERY [address] | MD Kae, FACS [address] | | | | | [address] [place], [place] | [address] [facility] | | | | | [address] | [place] [address] | | | | | [phone] | [phone] | | | | | | | [...] of this encounter Progress Notes Lydia Antonio, Remarketing Rep - 07/17/2018 0853 PDTCT Angiogram of the abdomen and pelv is, with runoff to the feet on 07/15/18 at [facility]. Impression: Severe atherosclerotic disease, with a very [...] | | | | | [place] [address] | | | | | | [phone] | | | | | | | | +--------+---------+ + + + | 08/27/ | Office | Cardiology | Shar Pettit | | | 2017 | Visit | | MD Joshua [address] | | | | | [address] | | | | | | [place] [address] | | | | | | [phone] | | | | | | | | +--------+---------+ + + + as of this encounter Visit Diagnoses Not on filein this encounter"
--- OUTSIDE RECORDS SUMMARY | ~2018-08-12 | XMS | Encounter Summary ---
Demographics + + + | Address | [address] | | | [place] [address] | + + + | Home Phone | | + + + | Preferred Language | Unknown | + + + | Marital Status | Single | + + + | Hinduism Affiliation | Unknown | + + + | Race | Unknown | + + + | Ethnic Group | Unknown | + + + Author + + + | Author | [facility] | | | and [place] | + + + | Organization | [facility] | | | and [...] Team Providers + +------+ + | Care Frame Gate Mortiser Operator Name | Role | Phone | [...] Anthony Yi | | | | | [phone] | [place] [address] | | +--------+ + + + + [...] | | | | | | [place] [address] | | | | | | [phone] | | | | | | | | +--------+---------+ + + + | 08/27/ | Office | Cardiology | Shar Pettit | | | 2017 | Visit | | MD Joshua [address] | | | | | | [address] [place] | | | | | | [place] [address] | | | | | | [phone] | | | | | | | [...]
--- OUTSIDE RECORDS SUMMARY | ~2018-08-12 | XMS | Encounter Summary ---
Demographics + + + | Address | [address] | | | [place] [address] | + + + | Home Phone | | + + + | Preferred Language | Unknown | + + + | Marital Status | Single | + + + | Congregational Affiliation | Unknown | + + + | Race | Unknown | + + + | Ethnic Group | Unknown | + + + Author + + + | Author | [facility] | | | and [place] | + + + | Organization | [facility] | | | [...] Team Providers + +------+ + | Care Distribution Collection Operator Name | Role | Phone | + +------+ + | Lobo Guillaume MD | PCP | | + +------+ + Reason for Visit +--------+ + | Reason | Comments | +--------+ + | Other | Requesting imaging | +--------+ + Encounter Details +--------+ + + + + | Date | Type | Department | Care Team | Description | +--------+ + + + + | 07/10/ | Telephone | [facility] | Aris Galicia | Other (Requesting | | 2017 | | LABORATORY SERVICE | MD Kae, FACS [address] | imaging) | | | | [address] | [facility] | | | | | [place], [place] | [place] [address] | | | | | [address] | [phone] | | | | | [phone] | | | +--------+ + + + + Social History + +-------+ +--------+------+ | Tobacco Use | Types | Packs/Day | Years | Date | | | | | Used | | + +-------+ +--------+------+ | Never Assessed | | | | | + +-------+ +--------+------+ + + + | Sex Assigned at [...] | 2017 | Visit | | MD Kae, [address] | | | | | | [address] | | | | | | [place] [address] | | | | | | [phone] | | | | | | | | +--------+---------+ + + + | 08/27/ | Office | Cardiology | Shar Pettit | | | 2018 | Visit | | MD Joshua [address] | | | | | | [address] | | | | | | [place] [address] | | | | | | [phone] | | | | | | | | +--------+---------+ + + + as of this encounter Visit Diagnoses Not on filein this encounter"
--- OUTSIDE RECORDS SUMMARY | ~2018-08-12 | XMS | Encounter Summary ---
Demographics + + + | Address | [address] | | | [place] [address] | + + + | Home Phone | | + + + | Preferred Language | Unknown | + + + | Marital Status | Single | + + + | Mosque Affiliation | Unknown | + + + | Race | Unknown | + + + | Ethnic Group | Unknown | + + + Author + + + | Author | [facility] | | | and [place] | + + + | Organization | [facility] | | | and [...] Team Providers + +------+ + | Care Sack Department Supervisor Name | Role | Phone | + +------+ + | Lobo Guillaume MD | PCP | | + +------+ + Encounter Details +--------+ + + + + | Date | Type | Department | Care Team | Description | +--------+ + + + + | 07/14/ | Abstract | [facility] | Aris Galicia | Claudication (HCC); | | 2017 | | SURGERY [address] | MD Kae, [address] | Chest discomfort | | | | [place], [place] | [address] [facility] | | | | | [address] | [place] [address] | | | | | [phone] | [phone] | | | | | | | [...] | | | | | | [place] [address] | | | | | | [phone] | | | | | | | | +--------+---------+ + + + | 08/27/ | Office | Cardiology | Shar Pettit | | | 2017 | Visit | | MD Joshua [address] | | | | | | [address] [facility] | | | | | | [place] [address] | | | | | | [phone] | | | | | | | | +--------+---------+ + + + as of this encounter Visit Diagnoses + + | Diagnosis | + + | Claudication (HCC) | + + | Peripheral vascular disease, unspecified | + + | Chest discomfort | + + | Other chest pain | + +"
--- OUTSIDE RECORDS SUMMARY | ~2018-08-12 | XMS | Encounter Summary ---
Demographics + + + | Address | [address] | | | [place] [address] | + + + | Home Phone | | + + + | Preferred Language | Unknown | + + + | Marital Status | Single | + + + | Yarsanism Affiliation | Unknown | + + + | Race | Unknown | + + + | Ethnic Group | Unknown | + + + Author + + + | Author | [facility] | | | and [place] | + + + | Organization | [facility] | | [...] Team Providers + +------+ + | Care Sealer Dry Cell Name | Role | Phone | + [...] + + | 07/10/ | Telephone | [facility] | Aris Galicia | Other (Requesting | | 2017 | | LABORATORY SERVICE | MD Kae, FACS [address] | imaging) | | | | [address] | [facility] | | | | | [place], [place] | [place] [address] | | | | | [address] | [phone] | | | | | [phone] | | | +--------+ + + + [...] | | | | | [place] [address] | | | | | | [phone] | | | | | | | | +--------+---------+ + + + | 08/27/ | Office | Cardiology | Shar Pettit | | | 2018 | Visit | | MD Joshua [address] | | | | | | [address] | | | | | | [place] [address] | | | | | | [phone] | | | | | | | | +--------+---------+ + + + as of this encounter Visit Diagnoses Not on filein this encounter"
[2018-08-12] MEDS ORDERED: LOSARTAN POTASS25 MG PO (15:52)
[2018-08-12] MEDS ORDERED: METOPROLOL TART25 MG PO (15:52)
[2018-08-12] MEDS ORDERED: CLOPIDOGREL75 MG PO (15:52)
[2018-08-12] MEDS ORDERED: OMEPRAZOLE20 MG PO (15:53)
[2018-08-12] MEDS ORDERED: ATORVASTATIN CA80 MG PO (15:53)
--- NOTE | 2018-08-13 21:09 | EKG ---
[facility] [address] [facility] [place], [place] [address] Signed Normal sinus rhythm Normal ECG When compared with ECG of 12-AUG-2018 15:39, (Unconfirmed) No significant change was found Confirmed by PRABHU MOORE DO ([id number]) on 08/13/2018 9:09:21 PM Electronically Signed By: PRABHU MOORE DO 08/13/18 2109 PATIENT NAME: KAEL PIMENTEL Electrocardiogram DATE OF : 43 PHYSICIAN: PRABHU MOORE DO REPORT #: [id number] REPORT IS CONFIDENTIAL AND NOT TO BE RELEASED WITHOUT AUTHORIZATION
== END 2018-08-12 19:15 | disposition short-term general hospital (02) ==
LOC: ED 15:35
DX: I20.0 Unstable angina (principal); F32.9 Major depressive disorder, single episode, unspecified; F17.200 Nicotine dependence, unspecified, uncomplicated; Z79.899 Other long term (current) drug therapy
CPT/HCPCS: 71045; 80053; 81001; 84484; 85025; 93005; 93010; 96374; 96375; 99285; J2405